=== PATIENT | female | born 1935 | race Caucasian/White ===

== ENCOUNTER 2024-06-13 11:59 | Emergency (ER) | payer MEDICARE ==
[~2024-06-13] VITALS: Ht 177.8 cm; Wt 72.6 kg
[2024-06-13 12:08] VITALS: BP 162/79; PULSE 84; RESP 20; TEMP 98.6; O2SAT 98
[2024-06-13 12:42] LABS: BASOPHILS # (AUTO) 0.1 K/uL (0.00-0.22); BASOPHILS % (AUTO) 0.7 % (0.0-2.0); EOSINOPHILS # (AUTO) 0.1 K/uL (0-0.4); EOSINOPHILS % (AUTO) 1.2 % (0.0-4.0); HEMATOCRIT 41.2 % (36-48); HEMOGLOBIN 13.8 g/dL (12.0-16.0); LYMPHOCYTES # (AUTO) 1.2 K/uL (2.5-16.5); LYMPHOCYTES % (AUTO) 16.1 % (20.5-51.1); MEAN CORPUSCULAR HEMOGLOBIN 31 pg (27-31); MEAN CORPUSCULAR HGB CONC 33 g/dL (33-37); MONOCYTES # (AUTO) 0.7 K/uL (0.8-1.0); MONOCYTES % (AUTO) 9.3 % (1.7-9.3); NEUTROPHILS # (AUTO) 5.4 K/uL (1.8-7.7); NEUTROPHILS % (AUTO) 72.7 % (42.2-75.2); PLATELET COUNT (AUTO) 289 K/uL (140-450); RED BLOOD CELL COUNT(AUTO) 4.47 MIL/uL (4.20-5.40); RED CELL DISTRIBUTION WIDTH 14.7 % (11.6-13.7); WHITE BLOOD COUNT (AUTO) 7.4 K/uL (4.8-10.8)
[2024-06-13] MEDS ORDERED: cefTRIAXone 1,000 MG VIAL ONE (12:43)
[2024-06-13 12:47] LABS: APPEARANCE,URINE CLEAR (CLEAR); BILIRUBIN,URINE NEGATIVE (NEGATIVE); BLOOD, URINE NEGATIVE (NEGATIVE); COLOR,URINE YELLOW (YELLOW); LEUKOCYTE ESTERASE ,URINE NEGATIVE (NEGATIVE); NITRITE, URINE NEGATIVE (NEGATIVE); PROTEIN,URINE NEGATIVE (NEGATIVE); UGLUCOSE NEGATIVE (NEGATIVE); UROBILINOGEN,URINE 0.2 EU/dL (0.2 - 1)
[2024-06-13] MEDS: LORazepam 2 MG/ML VIAL IVP ONE (12:47)
[2024-06-13] MEDS: cefTRIAXone 1,000 MG in DEXT 5% MINI-BAG PLUS 50 ML IV ONE (12:48)
[2024-06-13 12:50] LABS: ANION GAP 19.5 (8-16); CALCIUM 9.3 mg/dL (8.5-10.1); CARBON DIOXIDE 19.1 mmol/L (21-32); CHLORIDE 103 mmol/L (98-107); GLUCOSE 93 mg/dL (74-106); POTASSIUM 3.6 mmol/L (3.5-5.1); SODIUM SERUM 138 mmol/L (136-145); UREA NITROGEN, BLOOD 19 mg/dL (7-18)
[2024-06-13 12:56] LABS: FLU A ANTIGEN negative (NEGATIVE); FLU B ANTIGEN negative (NEGATIVE)
[2024-06-13 12:59] LABS: LACTIC ACID 1.3 mmol/L (0.4-2.0)
[2024-06-13] MEDS ORDERED: LOVA40TA4 PO (13:35)
[2024-06-13] MEDS ORDERED: LEVO75CA3 PO (13:35)
[2024-06-13] MEDS ORDERED: OSC500 PO (13:35)
[2024-06-13] MEDS ORDERED: ASPI-1822 PO (13:35)
[2024-06-13] MEDS ORDERED: AMLO5TAB PO (13:35)
[2024-06-13] MEDS ORDERED: CHOL200072 PO (13:35)
[2024-06-13] MEDS ORDERED: LOSA-272 PO ×2 (13:35)
[2024-06-13] MEDS ORDERED: MIRT15OD PO (13:35)
[2024-06-13] MEDS: ACETAMINOPHEN EXTRA STRENGTH 500 MG TAB PO ONE (15:43)
[2024-06-13 17:30] VITALS: O2SAT 95
[2024-06-13] MEDS: NACL 0.9% 1,000 ML IV ONE (18:20)
[2024-06-13 19:32] VITALS: BP 152/49; PULSE 72; RESP 22; TEMP 98.6; O2SAT 96
== END 2024-06-13 19:36 | disposition short-term general hospital (02) ==
LOC: MED 11:59
DX: R40.4 Transient alteration of awareness (principal); R79.89 Other specified abnormal findings of blood chemistry; Z20.822 Contact with and (suspected) exposure to COVID-19; F03.90 Unspecified dementia, unspecified severity, without behavioral disturbance, psychotic disturbance, mood disturbance, and anxiety; I10 Essential (primary) hypertension; Z86.39 Personal history of other endocrine, nutritional and metabolic disease; Z79.899 Other long term (current) drug therapy; Z91.011 Allergy to milk products; Z88.8 Allergy status to other drugs, medicaments and biological substances
CPT/HCPCS: 36415; 70450; 71045; 80048; 81003; 83605; 83880; 84484; 85025; 87040; 87086; 87426; 87804; 96361; 96365; 96375; 99285; J0696; J2060; J7030; Q0092